=== PATIENT | female | born 1975 | race Caucasian/White ===

== ENCOUNTER 2024-10-19 18:36 | Observation (INO) ==
[2024-10-19] MEDS ORDERED: ZOFRAN SDV IVP STA (18:56)
[2024-10-19] MEDS: PROTONIX IVP ONE (19:02)
[2024-10-19] MEDS: SODIUM CHLORIDE 1,000 ML IV ONE ×2 (19:02→20:11)
--- NOTE | 2024-10-19 19:05 | ED.PDOC ---
General ED Provider: Dr. DOUGLAS MCNEILL MD Chief Complaint: Nausea/Vomiting Stated Complaint: Pt presents with nausea and vomiting that started 2 days ago. Reports at least 5 episodes of vomiting today. Denies hematemesis. States she has abdominal pain and cramping while vomiting, but not in between. Denies diarrhea. Last BM a couple days ago, which is normal for her. Denies fever or urinary symptoms. Denies chest pain or SOB. States she did smoke marijuana prior to these symptoms starting, but does not think that could be the cause. She feels better when she sits in a hot bath. She was given zofran 4mg IV en route by EMS and states her nausea is slightly improved. She has h/o HTN but has not been able to take her BP medication for past several days. Time Seen by Provider: 10/19/24 18:42 Mode of Arrival: Ambulance Information Source: Patient and EMT Exam Limitations: No limitations Primary Care Provider: GARETH GIRON APRN, [facility] Nursing and Triage Documentation Reviewed and Agree: Yes What is Opioid Naive?: *Opioid Naive implies the patient is not already taking opioids or not chronically receiving opioids on a daily basis. *PRN dosing is not "usually" associated with tolerance. *Patients are at higher risk of over-sedation and aspiration. What is Opioid Tolerant?: *Opioid Tolerance implies less than the expected response to an opioid. *Acquired tolerance is defined by the patient taking 60mg of oral morphine daily (or equianalgesic dose of another opioid) for 1 week or more. *Often associated with chronic pain. *May take more than usual dose to achieve desired pain control. GI Complaint Exam Vomiting/Diarrhea Complaint/Exam Onset/Duration: 2 days Symptoms Are: Still present Episodes of Vomiting over last 24 Hours: 5 Initial Severity: Moderate Current Severity: Moderate Aggravating: Reports None Associated Signs and Symptoms: Reports Cramping; Denies Hematemesis or Fever Review of Systems Review Of Systems Constitutional: Reports No symptoms [facility] Medical History UTI (urinary tract infection) N39.0 - Urinary tract infection, site not specified (ICD-10) Hyperglycemia R73.9 - Hyperglycemia, unspecified (ICD-10) HTN (hypertension) I10 - Essential (primary) hypertension (ICD-10) Family History MATERNAL GRANDMOTHER Cancer FATHER Heart attack Diabetes Mother Hypertension SISTER Hypothyroidism Social History Smoking and tobacco status: Current every day smoker Tobacco type: cigarettes Smoking packs per day: 1 Alcohol intake: current Alcohol intake frequency: holidays/special occasions only Substance use type: marijuana Household members: spouse Marital status: M Number of children: 4 Highest education level completed: 8th grade Current occupational status: employed Current occupation: [employer] Current gender identity: female Seatbelt use: always Working smoke detector in home: Yes Surgical History S/P tubal ligation Z98.51 - Tubal ligation status (ICD-10) Femur fracture, right Nestor surgically placed S72.91XA - Unspecified fracture of right femur, initial encounter for closed fracture (ICD-10) History of hip surgery Right Z98.890 - Other specified postprocedural states (ICD-10) History of back surgery Z98.890 - Other specified postprocedural states (ICD-10) Female Reproductive History Menstrual Hx Hysterectomy: No Hx Tubal Ligation: Yes Physical Exam Physical Exam Appearance: Reports Well-appearing and Well-nourished Ill-appearing: None Pain Distress: None Eyes: Reports Conjunctiva clear ENT: Reports Nose normal Neck: Supple Respiratory: Reports Airway patent, Breath sounds clear, Breath sounds equal and Respirations nonlabored Cardiovascular: Reports RRR GI/: Reports Soft and Bowel sounds normal; Denies Nontender (mild diffuse tenderness without rebound, guarding or rigidity) Musculoskeletal: Reports Normal strength Skin: Reports Warm and Dry Neurological: Reports Alert and Oriented Psychiatric: Reports Affect appropriate Interpretation EKG Interpretation EKG Interpretation By: ED Physician Time of EKG #1: 19:05 Rate: Normal Rhythm: Sinus Ectopy: None ST Segment: Other (nonspecific ST abnormality) Re-Evaluation Re-Evaluation Status: Improved Additional Comments: Pt states she is feeling better after one liter of fluids and zofran by EMS. Her SBP initially around 200, but has improved now to 175. Discussed lab results with her. She has ARF, likely secondary to dehydration from nausea and vomiting given markedly elevated BUN. She has normal potassium and mild hyponatremia. WBC 20.68, LFTs (other than mildly elevated AST) and lipase ok. Her serum qualitative test is positive; suspect false positive due to perimenopause/menopause given her age and h/o BTL. Unable to obtain beta quant here as that machine is down, so will send to [facility] for confirmation. Will hold on any imaging until those results are back. Plan to repeat creatinine and see if patient is making urine after a second liter of NS to help determine disposition of admission here vs transfer. Re-Evaluation Time of Re-Evaluation: 23:54 Status: Improved Additional Comments: Pt is resting comfortably with no further vomiting. Her repeat BUN and creatinine have significantly improved and she has put out around 400ccs of urine. Her CT shows nothing acute - nephrolithiasis but no ureteral stone or hydronephrosis. Her send out beta quant is 2.84 so in postmenopausal range and not . Her BP is now 145/92 and HR is 88. I discussed all of this with hospitalist ISABEL, who has agreed to admit pt here for further IVF, BP monitoring and symptom control. Physician Notification Case Discussed Physician Notified: ISABEL Temple hospitalist Time of Notification: 23:56 Course Course 10/19/24 19:16 10/19/24 22:47 Orders, Labs, Meds: Lab Review 10/19/24 10/19/24 10/19/24 19:16 20:25 22:10 WBC 20.68 H RBC 5.65 H Hgb 17.2 H Hct 49.5 H MCV 87.6 MCH 30.4 MCHC 34.7 RDW Coeff of Crystal 13.3 Plt Count 484 H Immature Gran % (Auto) 0.2 Neut % (Auto) 89.9 H Lymph % (Auto) 5.3 L [place] % (Auto) 4.6 Eos % (Auto) 0.0 Baso % (Auto) 0.0 Neut # (Auto) 18.6 H Lymph # (Auto) 1.1 [place] # (Auto) 1.0 Eos # (Auto) 0.0 Baso # (Auto) 0.0 Immature Gran # (Auto) 0.0 Sodium 130.0 L Potassium 4.30 Chloride 87.0 L Carbon Dioxide 23.0 Anion Gap 24.30 BUN 70.0 H* Creatinine 3.50 H Estimated GFR (MDRD) 14.00 BUN/Creatinine Ratio 20.00 Glucose 129.0 H Calcium 9.90 Total Bilirubin 0.60 AST 86.0 H ALT 32.0 Alkaline Phosphatase 90.0 Total Protein 9.40 H Albumin 5.20 H Globulin 4.20 Albumin/Globulin Ratio 1.23 Lipase 138.0 Serum , Qual Positive Urine Color Yellow Urine Clarity Clear Urine pH 5.5 Ur Specific [place] 1.020 Urine Protein 1+ H Urine Glucose (UA) Negative Urine Ketones Negative Urine Blood 2+ H Urine Nitrite Negative Urine Bilirubin Negative Urine Urobilinogen 0.2 Ur Leukocyte Esterase Negative Urine Microscopic RBC 0-2 Ur Squamous Epith Cells Not present Urine Mucus Trace SARS CoV-2 RNA Rapid ARIANE Negative 10/19/24 22:47 WBC RBC Hgb Hct MCV MCH MCHC RDW Coeff of [place] Plt Count Immature Gran % (Auto) Neut % (Auto) Lymph % (Auto) [place] % (Auto) Eos % (Auto) Baso % (Auto) Neut # (Auto) Lymph # (Auto) [place] # (Auto) Eos # (Auto) Baso # (Auto) Immature Gran # (Auto) Sodium 130.0 L Potassium 4.20 Chloride 98.0 Carbon Dioxide 23.0 Anion Gap 13.20 BUN 60.0 H Creatinine 2.50 H D Estimated GFR (MDRD) 20.00 BUN/Creatinine Ratio 24.00 Glucose 122.0 H Calcium 7.90 L Total Bilirubin AST ALT Alkaline Phosphatase Total Protein Albumin Globulin Albumin/Globulin Ratio Lipase Serum , Qual Urine Color Urine Clarity Urine pH Ur Specific [place] Urine Protein Urine Glucose (UA) Urine Ketones Urine Blood Urine Nitrite Urine Bilirubin Urine Urobilinogen Ur Leukocyte Esterase Urine Microscopic RBC Ur Squamous Epith Cells Urine Mucus SARS CoV-2 RNA Rapid ARIANE Orders Category Date Time Status EKG-(ED ONLY) Stat CARDIO 10/19/24 18:56 Completed PULSE OX [CONTINUOUS PULSE OX (NURSING)] PULSEOX CARE 10/19/24 18:57 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] .ONCE EMERGENCY 10/19/24 18:56 Active IV [ED IV/MEDIPORT/POWERPORT] .ONCE EMERGENCY 10/19/24 18:56 Active BMP [BASIC METABOLIC PANEL] Stat LAB 10/19/24 22:47 Completed CBC W/ AUTO DIFF Stat LAB 10/19/24 19:16 Completed CMP [COMPREHENSIVE METABOLIC PANEL] Stat LAB 10/19/24 19:16 Completed HCG QUALITATIVE [SERUM ] Stat LAB 10/19/24 19:16 Completed LIPASE Stat LAB 10/19/24 19:16 Completed SARS COV-2 RNA RAPID ARIANE Stat LAB 10/19/24 20:25 Completed URINALYSIS C & S IF INDICATED Stat LAB 10/19/24 22:10 Completed 0.9 % Sodium Chloride [Saline Flush] Meds 10/19/24 18:56 Active 1 syr IVF PRN PRN Labetalol HCl [Trandate] Meds 10/19/24 21:30 Discontinued 20 mg IVP ONCE ONE Pantoprazole Sodium [Protonix] Meds 10/19/24 18:56 Discontinued 40 mg IVP ONCE ONE Sodium Chloride 0.9% [Sodium Chloride] 1,000 ml Meds 10/19/24 18:56 Discontinued IV BOLUS Sodium Chloride 0.9% [Sodium Chloride] 1,000 ml Meds 10/19/24 19:[address] ABDOMEN/PELVIS WO CONTRAST Stat RADS 10/19/24 22:49 Completed Medications Generic Name Dose Route Start Last Admin Trade Name Freq PRN Reason Stop Dose Admin Sodium Chloride 1 syr 10/19/24 18:56 0.9% Sodium Chloride 10 Ml Disp.Syrin IVF PRN PRN To flush IV Discontinued Medications Generic Name Dose Route Start Last Admin Trade Name Freq PRN Reason Stop Dose Admin Sodium Chloride 1,000 mls @ 1,000 mls/hr 10/19/24 18:56 10/19/24 20:13 Sodium Chloride IV 10/19/24 19:55 Infused BOLUS ONE Infusion Sodium Chloride 1,000 mls @ 1,000 mls/hr 10/19/24 19:46 10/19/24 21:11 Sodium Chloride IV 10/19/24 20:45 Infused BOLUS ONE Infusion Labetalol HCl 20 mg 10/19/24 21:30 10/19/24 21:39 Labetalol Hcl 20 Mg/4 Ml Disp.Syrin IVP 10/19/24 21:31 20 mg ONCE ONE Administration Pantoprazole Sodium 40 mg 10/19/24 18:56 10/19/24 19:02 Pantoprazole Sodium 40 Mg Vial IVP 10/19/24 18:57 40 mg ONCE ONE Administration Vital Signs: Temp Pulse Resp BP Pulse Ox 10/19/24 23:00 89 16 139/87 96 10/19/24 20:00 97.9 F 90 16 192/111 H 97 10/19/24 18:38 98.9 F 104 H 18 167/130 H 97 Discharge Plan Discharge Patient Disposition: PLACED OBSERVATION Discharge Problem: Acute renal failure Qualifiers: Acute renal failure type: unspecified Qualified Code(s): N17.9 - Acute kidney failure, unspecified Hypertension Qualifiers: Hypertension type: unspecified Qualified Code(s): I10 - Essential (primary) hypertension Nausea & vomiting Qualifiers: Vomiting type: unspecified Qualified Code(s): R11.2 - Nausea with vomiting, unspecified Prescriptions: No Action lisinopril 10 mg tablet 10 mg PO QDAY Qty: 30 2RF Did you review [place] [employer] [employer]ER for ALL controlled substances?: Not Applicable ED Provider: DOUGLAS MCNEILL Condition: Stable
[2024-10-19 19:33] LABS: HEMATOCRIT 49.5 % (37.0-47.0); HEMOGLOBIN 17.2 g/dl (12.0-16.0); IMMATURE GRANULOCYTE % (AUTO) 0.2 % (0.0-5.0); LYMPHOCYTES # (AUTO) 1.1 K/uL (0.60-3.4); LYMPHOCYTES % (AUTO) 5.3 (10.0-50.0); MEAN CORPUSCULAR HEMOGLOBIN 30.4 pg (27.0-31.0); MEAN CORPUSCULAR HGB CONC 34.7 (31.8-35.4); MEAN CORPUSCULAR VOLUME 87.6 fl (81.0-99.0); MONOCYTES % (AUTO) 4.6 (0-10); NEUTROPHILS # (AUTO) 18.6 K/ul (2.0-6.9); NEUTROPHILS % (AUTO) 89.9 % (42.2-75.2); PLATELET COUNT 484 10^3/uL (140-440); RDW COEFFICIENT OF VARIATION 13.3 % (11.6-14.8); RED BLOOD COUNT 5.65 10^6/ul (4.20-5.40); WHITE BLOOD COUNT 20.68 K/ul (4.6-10.2)
[2024-10-19 19:41] LABS: ALBUMIN 5.2 g/dL (3.5-5.0); BILIRUBIN,TOTAL 0.6 mg/dL (0.2-1.3); CALCIUM 9.9 mg/dL (8.4-10.2); POTASSIUM 4.3 mmol/L (3.5-5.1); TOTAL PROTEIN 9.4 g/dL (6.3-8.2)
[2024-10-19 19:44] LABS: CREATININE 3.5 mg/dL (0.60-1.30)
[2024-10-19 20:44] LABS: SERUM PREGNANCY POSITIVE (NEGATIVE)
[2024-10-19 20:59] LABS: SARS COV-2 RNA RAPID NAAT NEGATIVE (NEGATIVE)
[2024-10-19] MEDS: TRANDATE IVP ONE (21:39)
[2024-10-19 22:32] LABS: BILIRUBIN,URINE Negative (NEGATIVE); CLARITY,URINE Clear (CLEAR); COLOR,URINE Yellow (YELLOW); GLUCOSE, URINE (UA) Negative (NEGATIVE); KETONES,URINE Negative (NEGATIVE); LEUKOCYTE ESTERASE ,URINE Negative (NEGATIVE); NITRITE,URINE Negative (NEGATIVE); PH,URINE 5.5 (5-9); PROTEIN,URINE 1+ (NEGATIVE); URINE, BLOOD 2+ (NEGATIVE); UROBILINOGEN,URINE 0.2 (0.2)
[2024-10-19 22:33] LABS: SQUAMOUS EPITHELIAL CELL,UR NOT PRESENT (0-5); URINE RBC, MICROSCOPIC 0-2 (0-2)
[2024-10-19 22:34] LABS: MUCUS,URINE TRACE (NOT PRESENT)
[2024-10-19 23:05] LABS: CALCIUM 7.9 mg/dL (8.4-10.2); CREATININE 2.5 mg/dL (0.60-1.30); POTASSIUM 4.2 mmol/L (3.5-5.1)
--- NOTE | 2024-10-19 23:44 | CT ---
EXAM: CT OF THE ABDOMEN AND PELVIS WITHOUT CONTRAST. TECHNIQUE: CT of the abdomen and pelvis was performed without the use of contrast. Multiplanar refo rmats were performed. HISTORY: Vomiting, abdominal pain, leukocytosis. COMPARISON: CT abdomen pelvis 12/21/2023. FINDINGS: Evaluation of solid organs and blood vessels is suboptimal without the benefit of contrast. Imaged lower thorax: Unremarkable. Liver: Unremarkable. Gallbladder/Bile Ducts: No biliary dilation. Post cholecystectomy. Spleen: Unremarkable. Pancreas: Unremarkable. Adrenals: Bilateral adrenal thickening similar to the previous exam. Kidneys/Ureters: Bilateral nephrolithiasis, largest stone in the right collecting system measures 1 m m in largest stone in the left collecting system measures 3 mm. Bowel/mesentery/peritoneum: Colonic diverticulosis without acute diverticulitis. Normal appendix. No free air or ascites. Retroperitoneum/vessels: No aortic aneurysm. No adenopathy. Scattered atherosclerotic calcifications. Pelvis: Bilateral adnexal surgical clips. Uterus and bladder are unremarkable. Bones/body wall: Dextroconvex lumbar scoliosis. Advanced multilevel degenerative spondylosis. Necrosi s of the right femoral head. Partially imaged right femoral internal fixation hardware. IMPRESSION: Bilateral nephrolithiasis. No stone in the ureter or hydronephrosis. Colonic diverticulosis without acute diverticulitis. Calcified atherosclerosis. Additional chronic and postsurgical findings as above. All CT scans are performed using dose optimization techniques as appropriate to the performed exam an d include at least one of the following: Automated exposure control, adjustment of the mA and/or kV according t o size, and the use of iterative reconstruction technique.
[2024-10-20] MEDS ORDERED: ZOFRAN SDV IVP PRN (00:01)
[2024-10-20 01:00] VITALS: BMI 17.9
[2024-10-20] MEDS: SODIUM CHLORIDE 1,000 ML IV SCH (01:06)
[2024-10-20] MEDS: HYDRALAZINE HCL IVP PRN (01:32)
[2024-10-20 07:22] LABS: BASOPHILS % (AUTO) 0.1 % (0.0-3.0); HEMATOCRIT 44.1 % (37.0-47.0); HEMOGLOBIN 14.7 g/dl (12.0-16.0); IMMATURE GRANULOCYTE # (AUTO) 0.1 (0.0-1.0); IMMATURE GRANULOCYTE % (AUTO) 0.4 % (0.0-5.0); LYMPHOCYTES # (AUTO) 0.8 K/uL (0.60-3.4); LYMPHOCYTES % (AUTO) 6.1 (10.0-50.0); MEAN CORPUSCULAR HEMOGLOBIN 30.2 pg (27.0-31.0); MEAN CORPUSCULAR HGB CONC 33.3 (31.8-35.4); MEAN CORPUSCULAR VOLUME 90.6 fl (81.0-99.0); MONOCYTES # (AUTO) 0.9 K/uL (0.4-2.0); MONOCYTES % (AUTO) 6.5 (0-10); NEUTROPHILS # (AUTO) 11.7 K/ul (2.0-6.9); NEUTROPHILS % (AUTO) 86.9 % (42.2-75.2); PLATELET COUNT 398 10^3/uL (140-440); RDW COEFFICIENT OF VARIATION 13.8 % (11.6-14.8); RED BLOOD COUNT 4.87 10^6/ul (4.20-5.40); WHITE BLOOD COUNT 13.45 K/ul (4.6-10.2)
[2024-10-20 07:44] LABS: ALBUMIN 4.2 g/dL (3.5-5.0); BILIRUBIN,TOTAL 0.5 mg/dL (0.2-1.3); CALCIUM 8.7 mg/dL (8.4-10.2); CREATININE 1.4 mg/dL (0.60-1.30); POTASSIUM 4.2 mmol/L (3.5-5.1); TOTAL PROTEIN 7.3 g/dL (6.3-8.2)
[2024-10-20] MEDS: PROTONIX PO SCH (09:09)
[2024-10-20] MEDS: PEPCID PO SCH (09:09)
[2024-10-20] MEDS ORDERED: TYLENOL PO PRN (10:38)
--- NOTE | 2024-10-20 10:38 | PCM ---
Date of Service Date Seen by Provider: 10/20/24 Time Seen by Provider: 09:00 Admit Day/Time Admission Date: 10/19/24 Admission Time: 23:57 Reason for Admission Chief Complaint: ACUTE RENAL FAILURE Hospital Provider Hospital Provider: OLYA MCKAY PA-C, [facility] [place] Primary Care Physician Primary Care Physician: GARETH GIRON APRN, DEONDRE-C History of Present Illness History of Present Illness: Patient is a 49-year-old female with past medical history of hypertension who presented to the ER with abdominal pain, nausea vomiting, and elevated blood pressure. Her blood pressures were consistently elevated near 200 systolic. She states that she has had nausea and vomiting for the last 2 days at least. Denies any diarrhea or constipation. No blood in stool. No fever. She denies any recent episodes similar to this. No sick contacts. In the ER she was noted to have a creatinine of 3.5 and BUN of 70. Patient historically has normal renal function. CT scan of abdomen and pelvis did not show any acute findings. She was given 2 L of normal saline and was able to have about 400-500 urine output. Urinalysis unremarkable other than hematuria which is chronic. Repeat BMP showed an improvement in her BUN and creatinine. Therefore she was admitted to [facility] for KYRA and dehydration. This morning patient is feeling better, no vomiting since being on the floor. She has been able to tolerate clear liquids. Blood pressure is improved but still elevated. She has been without her lisinopril for the last few days due to the vomiting. Her BUN and creatinine are improved but not at baseline at this time. Fluids continue. Of note, in the ER patient had a false positive urine preg test. Quant had to be sent out due to the analyzer being down, quant was 2, consistent with menopause. Case Discussed With Case Discussed With: Patient's case was discussed with the ER Physicians, Dr. Santos. [facility] Medical History UTI (urinary tract infection) N39.0 - Urinary tract infection, site not specified (ICD-10) Hyperglycemia R73.9 - Hyperglycemia, unspecified (ICD-10) Surgical History S/P tubal ligation Z98.51 - Tubal ligation status (ICD-10) Femur fracture, right Nestor surgically placed S72.91XA - Unspecified fracture of right femur, initial encounter for closed fracture (ICD-10) History of hip surgery Right Z98.890 - Other specified postprocedural states (ICD-10) History of back surgery Z98.890 - Other specified postprocedural states (ICD-10) Family History MATERNAL GRANDMOTHER Cancer FATHER Heart attack Diabetes Mother Hypertension SISTER Hypothyroidism Social History Smoking and tobacco status: Current every day smoker Tobacco type: cigarettes Smoking packs per day: 1 Alcohol intake: current Alcohol intake frequency: holidays/special occasions only Substance use type: marijuana Household members: spouse Marital status: M Number of children: 4 Highest education level completed: 8th grade Current occupational status: employed Current occupation: [employer] Current gender identity: female Seatbelt use: always Working smoke detector in home: Yes Allergies Allergies Allergy/AdvReac Type Severity Reaction Status Date / Time No Known Allergies Allergy Verified 10/19/24 18:57 Current Medications Home Medications Acetaminophen (Acetaminophen 325 Mg Tablet) 650 mg PO Q4H PRN PRN Reason: Mild Pain Famotidine (Famotidine 20 Mg Tablet) 20 mg PO BIDAC2 [facility] Last Admin: 10/20/24 09:09 Dose: 20 mg Hydralazine HCl (Hydralazine Hcl 20 Mg/Ml Sdv) 10 mg IVP Q6H PRN PRN Reason: Hypertension Last Admin: 10/20/24 01:32 Dose: 10 mg Sodium Chloride (Sodium Chloride) 1,000 mls @ 100 mls/hr IV .Q10H OLMAN Last Admin: 10/20/24 10:51 Dose: 100 mls/hr Lisinopril (Lisinopril 10 Mg Tablet) 10 mg PO DAILY [facility] Last Admin: 10/20/24 10:50 Dose: 10 mg Ondansetron HCl (Ondansetron Hcl/Pf 4 Mg/2 Ml Sdv) 4 mg IVP Q6HR PRN PRN Reason: Nausea / Vomiting Pantoprazole Sodium (Pantoprazole Sodium 40 Mg Tablet.Dr) 40 mg PO QDAC2 [facility] Last Admin: 10/20/24 09:09 Dose: 40 mg Sodium Chloride (0.9% Sodium Chloride 10 Ml Disp.Syrin) 1 syr IVF PRN PRN PRN Reason: To flush IV lisinopril 10 mg tablet 10 mg PO QDAY #30 tabs 09/06/24 [Rx Confirmed 10/19/24] Opioid Naive vs. Tolerant Does Patient Take Opioids?: No Is Patient Opioid Naive?: Yes What is Opioid Naive?: *Opioid Naive implies the patient is not already taking opioids or not chronically receiving opioids on a daily basis. *PRN dosing is not "usually" associated with tolerance. *Patients are at higher risk of over-sedation and aspiration. Is Patient Opioid Tolerant?: No What is Opioid Tolerant?: *Opioid Tolerance implies less than the expected response to an opioid. *Acquired tolerance is defined by the patient taking 60mg of oral morphine daily (or equianalgesic dose of another opioid) for 1 week or more. *Often associated with chronic pain. *May take more than usual dose to achieve desired pain control. Review of Systems Constitutional: Denies Fever Head: Reports Normocephalic and Atraumatic Cardiovascular: Denies Chest pain Respiratory: Denies Cough or Shortness of air Gastrointestinal: Reports Nausea and Abdominal pain; Denies Diarrhea, Hematemesis, Constipation, Heartburn, Reflux, Black Tarry Stools or Melena Genitourinary: Denies Dysuria or Frequency Dermatologic: Denies Rashes Neurological: Denies Headache, Dizziness, Syncope or Weakness Psychiatric: Denies Depression or Anxiety Physical examination Most Recent Vital Signs: Most Recent Vital Signs Temperature 98.4 F 10/20/24 05:49 Temperature Source Temporal Artery Scan 10/20/24 05:49 Temperature Source Infrared 10/19/24 20:00 Pulse Rate 90 10/20/24 05:49 Respiratory Rate 16 10/20/24 05:49 Blood Pressure 162/88 H 10/20/24 05:49 Blood Pressure Mean 112 10/20/24 05:49 Blood Pressure Right Arm 194/110 10/20/24 00:33 Blood Pressure Location Right Arm 10/20/24 05:49 Blood Pressure Position Supine 10/20/24 05:49 O2 Sat by Pulse Oximetry 100 10/20/24 07:00 Oxygen Delivery Method Room Air 10/20/24 09:00 Height 5 ft 4 in 10/20/24 00:33 Weight 47.3 kg 10/20/24 00:33 Telemetry Type Remote Telemetry 10/20/24 00:49 Telemetry Monitoring Started 10/20/24 00:49 Telemetry Heart Rate 81 10/20/24 00:49 Telemetry SPO2 98 10/20/24 00:49 EKG MA Interval 0.14 10/20/24 00:49 EKG QRS Interval 0.09 10/20/24 00:49 Telemetry Strip Reading SR 10/20/24 00:49 Pulse Oximetry Type Remote Telemetry 10/20/24 07:00 Pulse Oximetry Monitoring Continues 10/20/24 07:00 Appearance: Positive No Apparent Distress and Alert and Oriented x3 HEENT: Positive Normocephalic and Atraumatic Neck: Positive Supple and Midline Trachea Chest/Lungs: Positive Clear to Auscultation Bilaterally; Negative Rales, Rhonci or Wheezes Heart: Positive RRR GI/: Positive Soft, Nontender, Bowel Sounds Normal and No Distention Neurological: Positive Cranial Nerves Intact, Alert and Oriented Psychiatric: Positive Oriented x4 and Other (+anxious, emotionally labile ) Labs This Visit Labs This Visit: Labs This Visit 10/19/24 10/19/24 10/19/24 19:16 20:25 22:10 WBC 20.68 H RBC 5.65 H Hgb 17.2 H Hct 49.5 H MCV 87.6 MCH 30.4 MCHC 34.7 RDW Coeff of Crystal 13.3 Plt Count 484 H Immature Gran % (Auto) 0.2 Neut % (Auto) 89.9 H Lymph % (Auto) 5.3 L [place] % (Auto) 4.6 Eos % (Auto) 0.0 Baso % (Auto) 0.0 Neut # (Auto) 18.6 H Lymph # (Auto) 1.1 Lake # (Auto) 1.0 Eos # (Auto) 0.0 Baso # (Auto) 0.0 Immature Gran # (Auto) 0.0 Sodium 130.0 L Potassium 4.30 Chloride 87.0 L Carbon Dioxide 23.0 Anion Gap 24.30 BUN 70.0 H* Creatinine 3.50 H Estimated GFR (MDRD) 14.00 BUN/Creatinine Ratio 20.00 Glucose 129.0 H Calcium 9.90 Total Bilirubin 0.60 AST 86.0 H ALT 32.0 Alkaline Phosphatase 90.0 Total Protein 9.40 H Albumin 5.20 H Globulin 4.20 Albumin/Globulin Ratio 1.23 Lipase 138.0 Serum , Qual Positive Urine Color Yellow Urine Clarity Clear Urine pH 5.5 Ur Specific [place] 1.020 Urine Protein 1+ H Urine Glucose (UA) Negative Urine Ketones Negative Urine Blood 2+ H Urine Nitrite Negative Urine Bilirubin Negative Urine Urobilinogen 0.2 Ur Leukocyte Esterase Negative Urine Microscopic RBC 0-2 Ur Squamous Epith Cells Not present Urine Mucus Trace SARS CoV-2 RNA Rapid ARIANE Negative 10/19/24 10/20/24 22:47 07:15 WBC 13.45 H D RBC 4.87 Hgb 14.7 Hct 44.1 MCV 90.6 MCH 30.2 MCHC 33.3 RDW Coeff of Crystal 13.8 Plt Count 398 Immature Gran % (Auto) 0.4 Neut % (Auto) 86.9 H Lymph % (Auto) 6.1 L [place] % (Auto) 6.5 Eos % (Auto) 0.0 Baso % (Auto) 0.1 Neut # (Auto) 11.7 H Lymph # (Auto) 0.8 Lake # (Auto) 0.9 Eos # (Auto) 0.0 Baso # (Auto) 0.0 Immature Gran # (Auto) 0.1 Sodium 130.0 L 131.0 L Potassium 4.20 4.20 Chloride 98.0 100.0 Carbon Dioxide 23.0 21.0 L Anion Gap 13.20 14.20 BUN 60.0 H 48.0 H Creatinine 2.50 H D 1.40 H D Estimated GFR (MDRD) 20.00 40.00 BUN/Creatinine Ratio 24.00 34.28 Glucose 122.0 H 108.0 H Calcium 7.90 L 8.70 Total Bilirubin 0.50 AST 64.0 H ALT 33.0 Alkaline Phosphatase 74.0 Total Protein 7.30 Albumin 4.20 Globulin 3.10 Albumin/Globulin Ratio 1.35 Lipase Serum , Qual Urine Color Urine Clarity Urine pH Ur Specific [place] Urine Protein Urine Glucose (UA) Urine Ketones Urine Blood Urine Nitrite Urine Bilirubin Urine Urobilinogen Ur Leukocyte Esterase Urine Microscopic RBC Ur Squamous Epith Cells Urine Mucus SARS CoV-2 RNA Rapid ARIANE Imaging Imaging: EXAM: CT OF THE ABDOMEN AND PELVIS WITHOUT CONTRAST. TECHNIQUE: CT of the abdomen and pelvis was performed without the use of contrast. Multiplanar reformats were performed. HISTORY: Vomiting, abdominal pain, leukocytosis. COMPARISON: CT abdomen pelvis 12/21/2023. FINDINGS: Evaluation of solid organs and blood vessels is suboptimal without the benefit of contrast. Imaged lower thorax: Unremarkable. Liver: Unremarkable. Gallbladder/Bile Ducts: No biliary dilation. Post cholecystectomy. Spleen: Unremarkable. Pancreas: Unremarkable. Adrenals: Bilateral adrenal thickening similar to the previous exam. Kidneys/Ureters: Bilateral nephrolithiasis, largest stone in the right collecting system measures 1 mm in largest stone in the left collecting system measures 3 mm. Bowel/mesentery/peritoneum: Colonic diverticulosis without acute diverticulitis. Normal appendix. No free air or ascites. Retroperitoneum/vessels: No aortic aneurysm. No adenopathy. Scattered atherosclerotic calcifications. Pelvis: Bilateral adnexal surgical clips. Uterus and bladder are unremarkable. Bones/body wall: Dextroconvex lumbar scoliosis. Advanced multilevel degenerative spondylosis. Necrosis of the right femoral head. Partially imaged right femoral internal fixation hardware. IMPRESSION: Bilateral nephrolithiasis. No stone in the ureter or hydronephrosis. Colonic diverticulosis without acute diverticulitis. Calcified atherosclerosis. Additional chronic and postsurgical findings as above. Review Statement Review Statement: I have independently reviewed and interpreted the labs/EKGs/imaging that were ordered by the ER provider. I have reviewed all outside records that are available currently in our EMR including imaging/notes/labs from previous visits. Plan Plan: 1. KYRA, stage I - prerenal, improving, continue fluids. 2. Dehydration in setting of nausea and vomiting - Plan as above 3. Hematuria - Chronic on several past UAs, f/u outpatient 4. Hypertension - Restart lisinopril, hydralazine iv ordered prn 5. Intractable n/v - Improved, clear liquids, can progress diet as tolerated DVT Prophylaxis: Ambulation Time Spent: Greater than 80 minutes spent with patient, 50% of the time spent with this patient was devoted to counseling and coordination of care. [facility] minutes spent discussing advance care planning. Admit to: Obs Discussed Plan of Care with Dr. Cynthia Day. Medications Medication Orders: Medications Ordered Category Date Time Status 0.9 % Sodium Chloride [Saline Flush] Meds 10/19/24 18:56 Active 1 syr IVF PRN PRN Famotidine [Pepcid] Meds 10/20/24 08:20 Active 20 mg PO BIDAC2 Hydralazine HCl Meds 10/20/24 01:16 Active 10 mg IVP Q6H PRN Lisinopril [Zestril] Meds 10/20/24 09:35 Active 10 mg PO DAILY Ondansetron HCl/Pf [Zofran Sdv] Meds 10/20/24 00:01 Active 4 mg IVP Q6HR PRN Pantoprazole Sodium [Protonix] Meds 10/20/24 08:20 Active 40 mg PO QDAC2 Sodium Chloride 0.9% [Sodium Chloride] 1,000 ml Meds 10/19/24 23:45 Active IV 100 mls/hr
[2024-10-20] MEDS: ZESTRIL PO SCH (10:50)
[2024-10-20 17:51] VITALS: TEMP 97.8
[2024-10-20 20:26] VITALS: BP 110/71; RESP 20
[2024-10-21 05:41] LABS: BASOPHILS % (AUTO) 0.3 % (0.0-3.0); EOSINOPHILS % (AUTO) 0.3 % (0.0-7.0); HEMATOCRIT 36.9 % (37.0-47.0); HEMOGLOBIN 12.1 g/dl (12.0-16.0); IMMATURE GRANULOCYTE % (AUTO) 0.4 % (0.0-5.0); LYMPHOCYTES # (AUTO) 1.2 K/uL (0.60-3.4); LYMPHOCYTES % (AUTO) 15.7 (10.0-50.0); MEAN CORPUSCULAR HEMOGLOBIN 30.1 pg (27.0-31.0); MEAN CORPUSCULAR HGB CONC 32.8 (31.8-35.4); MEAN CORPUSCULAR VOLUME 91.8 fl (81.0-99.0); MONOCYTES # (AUTO) 0.8 K/uL (0.4-2.0); MONOCYTES % (AUTO) 10.7 (0-10); NEUTROPHILS # (AUTO) 5.6 K/ul (2.0-6.9); NEUTROPHILS % (AUTO) 72.6 % (42.2-75.2); PLATELET COUNT 333 10^3/uL (140-440); RDW COEFFICIENT OF VARIATION 13.9 % (11.6-14.8); RED BLOOD COUNT 4.02 10^6/ul (4.20-5.40); WHITE BLOOD COUNT 7.75 K/ul (4.6-10.2)
[2024-10-21 05:55] LABS: ALANINE AMINOTRANSFERASE 29.1 U/L (0-35); ALBUMIN 3.53 g/dL (3.5-5.0); ALKALINE PHOSPHATASE 58.5 U/L (38-126); ASPARTATE AMINO TRANSFERASE 54.6 U/L (14-36); BILIRUBIN,TOTAL 0.56 mg/dL (0.2-1.3); BLOOD UREA NITROGEN 21.2 mg/dL (7-17); CALCIUM 8.56 mg/dL (8.4-10.2); CHLORIDE 104.1 mmol/L (98-107); CREATININE 0.79 mg/dL (0.60-1.30); GLUCOSE 76.2 mg/dL (74-106); POTASSIUM 3.93 mmol/L (3.5-5.1); SODIUM 137.4 mmol/L (134.5-145); TOTAL PROTEIN 6.38 g/dL (6.3-8.2)
[2024-10-21 08:10] VITALS: PULSE 72
--- NOTE | 2024-10-21 08:23 | DCSUM ---
Admission Date Admission Date: 10/19/24 Discharge Date Discharge Date: 10/21/24 Admission Diagnosis Admission Diagnosis: 1. KYRA, stage I 2. Dehydration in setting of nausea and vomiting Discharge Diagnosis Discharge Diagnosis: 1. KYRA, stage I - resolved 2. Dehydration in setting of nausea and vomiting 3. Hematuria - chronic 4. Hypertension 5. Intractable n/v - resolved Hospital Provider Hospital Provider: [facility] Primary [facility] Physician Primary Care Physician: GARETH GIRON APRN, [employer] Summary of History and Physical Summary of History and Physical: Patient is a 49-year-old female with past medical history of hypertension who presented to the ER with abdominal pain, nausea vomiting, and elevated blood pressure. Her blood pressures were consistently elevated near 200 systolic. She states that she has had nausea and vomiting for the last 2 days at least. Denies any diarrhea or constipation. No blood in stool. No fever. She denies any recent episodes similar to this. No sick contacts. In the ER she was noted to have a creatinine of 3.5 and BUN of 70. Patient historically has normal renal function. CT scan of abdomen and pelvis did not show any acute findings. She was given 2 L of normal saline and was able to have about 400-500 urine output. Urinalysis unremarkable other than hematuria which is chronic. Repeat BMP showed an improvement in her BUN and creatinine. Therefore she was admitted to [facility] for KYRA and dehydration. This morning patient is feeling better, no vomiting since being on the floor. She has been able to tolerate clear liquids. Blood pressure is improved but still elevated. She has been without her lisinopril for the last few days due to the vomiting. Her BUN and creatinine are improved but not at baseline at this time. Fluids continue. Of note, in the ER patient had a false positive urine preg test. Quant had to be sent out due to the analyzer being down, quant was 2, consistent with menopause. Hospital Course Subjective: Patient did not have any vomiting once admitted. Able to tolerate PO diet. Patient's BUN and Cr was improved on 10/20 but not yet at baseline. After another day of fluids, labs are baseline and patient is feeling better. BP much improved after restarting home meds. Will discharge home. Zofran sent in prn. F/u with pcp. Appearance: No Apparent Distress and Alert HEENT: MMM CVS: Other (RRR) Abdomen: Soft, Non-Tender and No Distention Respiratory: No Accessory Muscle Use Extremities: No Edema Vital Signs: Most Recent Vital Signs Temperature 97.8 F 10/20/24 20:24 Temperature Source Temporal Artery Scan 10/20/24 20:24 Temperature Source Infrared 10/19/24 20:00 Pulse Rate 72 10/21/24 08:00 Respiratory Rate 20 10/21/24 08:00 Blood Pressure 110/71 10/20/24 20:24 Blood Pressure Mean 84 10/20/24 20:24 Blood Pressure Right Arm 194/110 10/20/24 00:33 Blood Pressure Location Right Arm 10/20/24 20:24 Blood Pressure Position Supine 10/20/24 20:24 O2 Sat by Pulse Oximetry 99 10/21/24 07:00 Oxygen Delivery Method Room Air 10/21/24 08:00 Height 5 ft 4 in 10/20/24 00:33 Weight 47.3 kg 10/20/24 00:33 Telemetry Type Remote Telemetry 10/21/24 07:00 Telemetry Monitoring Continues 10/21/24 07:00 Irregular Telemetry Rate (Approximate) 80-90 BPM 10/20/24 13:00 Telemetry Heart Rate 69 10/21/24 07:00 Telemetry SPO2 98 10/20/24 00:49 EKG AR Interval 0.13 10/21/24 07:00 EKG QRS Interval 0.08 10/21/24 07:00 Telemetry Strip Reading NSR 10/21/24 07:00 Pulse Oximetry Type Remote Telemetry 10/21/24 07:00 Pulse Oximetry Monitoring Continues 10/21/24 07:00 Imaging: EXAM: CT OF THE ABDOMEN AND PELVIS WITHOUT CONTRAST. TECHNIQUE: CT of the abdomen and pelvis was performed without the use of contrast. Multiplanar reformats were performed. HISTORY: Vomiting, abdominal pain, leukocytosis. COMPARISON: CT abdomen pelvis 12/21/2023. FINDINGS: Evaluation of solid organs and blood vessels is suboptimal without the benefit of contrast. Imaged lower thorax: Unremarkable. Liver: Unremarkable. Gallbladder/Bile Ducts: No biliary dilation. Post cholecystectomy. Spleen: Unremarkable. Pancreas: Unremarkable. Adrenals: Bilateral adrenal thickening similar to the previous exam. Kidneys/Ureters: Bilateral nephrolithiasis, largest stone in the right c ollecting system measures 1 mm in largest stone in the left collecting system measures 3 mm. Bowel/mesentery/peritoneum: Colonic diverticulosis without acute diverticulitis. Normal appendix. No free air or ascites. Retroperitoneum/vessels: No aortic aneurysm. No adenopathy. Scattered atherosclerotic calcifications. Pelvis: Bilateral adnexal surgical clips. Uterus and bladder are unremarkable. Bones/body wall: Dextroconvex lumbar scoliosis. Advanced multilevel degenerative spondylosis. Necrosis of the right femoral head. Partially imaged right femoral internal fixation hardware. IMPRESSION: Bilateral nephrolithiasis. No stone in the ureter or hydronephrosis. Colonic diverticulosis without acute diverticulitis. Calcified atherosclerosis. Additional chronic and postsurgical findings as above. Lab Results Last 24 Hours: 10/21/24 05:25 WBC 7.75 D RBC 4.02 L Hgb 12.1 Hct 36.9 L D MCV 91.8 MCH 30.1 MCHC 32.8 RDW Coeff of Crystal 13.9 Plt Count 333 Immature Gran % (Auto) 0.4 Neut % (Auto) 72.6 Lymph % (Auto) 15.7 [place] % (Auto) 10.7 H Eos % (Auto) 0.3 Baso % (Auto) 0.3 Neut # (Auto) 5.6 Lymph # (Auto) 1.2 [place] # (Auto) 0.8 Eos # (Auto) 0.0 Baso # (Auto) 0.0 Immature Gran # (Auto) 0.0 Sodium 137.4 Potassium 3.93 Chloride 104.1 Carbon Dioxide 24.0 Anion Gap 13.23 BUN 21.2 H D Creatinine 0.79 D Estimated GFR (MDRD) 77.00 BUN/Creatinine Ratio 26.83 Glucose 76.2 Calcium 8.56 Total Bilirubin 0.56 AST 54.6 H ALT 29.1 Alkaline Phosphatase 58.5 Total Protein 6.38 Albumin 3.53 Globulin 2.85 Albumin/Globulin Ratio 1.23 Discharge Instructions Discharge Planning: Discharge Planning > [address] Cynthia Day. Discharge Medications: Medications at Discharge (Home Meds & RX) lisinopril 10 mg tablet 10 mg PO QDAY #30 tabs 09/06/24 ondansetron 4 mg disintegrating tablet 4 mg PO Q8H PRN nausea and vomiting #10 tabs 10/21/24 Discharge Plan Discharge Discharge Orders: Discharge Patient (ONCE); Ordered 10/21/24 Ordered By: OLYA MCKAY Activity Restrictions/Additional Instructions: DISCHARGE TO HOME DX: ACUTE KIDNEY INJURY PLEASE SEE YOUR PCP WITHIN A WEEK PUSH FLUIDS RETURN WITH WORSENING SYMPTOMS Instructions: Acute Kidney Injury (DC), Acute Nausea and Vomiting (DC) Care Plan Goals: Problem: Nausea Goal #1: Maintain adequate fluid volume Instructions: Monitor for signs and symptoms of dehydration Monitor I/O as needed Goal #2: Relief of nausea Instructions: Medication as ordered Position to prevent aspiration Patient Disposition: HOME SELF-CARE Prescriptions: New ondansetron 4 mg tablet,disintegrating 4 mg PO Q8H PRN (Reason: nausea and vomiting) Qty: 10 0RF Continued lisinopril 10 mg tablet 10 mg PO QDAY Qty: 30 2RF Did you review [place] [employer] [employer] for ALL controlled substances?: Not Applicable Discussed opioids are addictive and Narcan is available by prescription or from pharmacy.: No Condition: Stable Referrals: GARETH GIRON APRN,[employer]-C [Primary Care Provider] - 11/02/24 9:00 am
== END 2024-10-21 09:52 | disposition home or self-care (01) ==
LOC: ED 18:36 → MEDSURG B 18:36
PROVIDERS: ADMIT Hospitalist; ATTEND Physician Assistant
DX: I10 Essential (primary) hypertension; Z51.81 Encounter for therapeutic drug level monitoring; E86.0 Dehydration; Z79.899 Other long term (current) drug therapy; R11.2 Nausea with vomiting, unspecified; N17.9 Acute kidney failure, unspecified; N02.9 Recurrent and persistent hematuria with unspecified morphologic changes; Z20.822 Contact with and (suspected) exposure to COVID-19